=== PATIENT | female | born 1975 | race African-American/Black ===

== ENCOUNTER 2019-04-09 17:18 | Emergency (ER) | payer OTHER ==
[2019-04-09 17:31] VITALS: BP 160/92
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
[2019-04-09] MEDS ORDERED: ACETAMINOPHEN 325 MG TABLET PO ONE (18:28)
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
== END 2019-04-09 19:05 | disposition home or self-care (01) ==
LOC: ER 17:18
DX: S06.9X9A Unspecified intracranial injury with loss of consciousness of unspecified duration, initial encounter (principal); S40.812A Abrasion of left upper arm, initial encounter; R07.89 Other chest pain; M54.2 Cervicalgia; V87.7XXA Person injured in collision between other specified motor vehicles (traffic), initial encounter; I10 Essential (primary) hypertension
CPT/HCPCS: 70450; 71046; 99284